=== PATIENT | male | born 1955 | race Caucasian/White ===

== ENCOUNTER 2017-06-20 15:54 | Inpatient (IN) | payer OTHER ==
[2017-06-20] MEDS ORDERED: fentaNYL 100 MCG/2 ML INJ ONE ×2 (16:00→22:47)
[2017-06-20] MEDS ORDERED: TDAP ADULT 0.5 ML INJ (BOOSTRIX) IM ONE (16:00)
[2017-06-20] MEDS ORDERED: fentaNYL 100 MCG/2 ML INJ IVP ONE (16:00)
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
[2017-06-20] MEDS ORDERED: HYDROmorphONE/DILAUDID 1 MG/ML INJ IVP ONE (16:40)
[2017-06-20 16:48] LABS: PLATELET COUNT 312 10^3/uL (150-400)
[2017-06-20] MEDS ORDERED: BUPIVACAINE 0.5% 30 ML SDV ONE (17:50)
[2017-06-20] MEDS ORDERED: POLYMYXIN B SULFATE 500,000 UNIT/10 ML SYR IRR ONE ×2 (17:51→21:26)
[2017-06-20] MEDS ORDERED: BACITRACIN 50,000 UNITS/10 ML SYR IRR ONE ×2 (17:51→21:26)
[2017-06-20] MEDS ORDERED: OXYCODONE/APAP 5/325 TAB PO PRN (18:31)
[2017-06-20] MEDS ORDERED: ACETAMINOPHEN 500 MG TAB PO PRN (18:31)
[2017-06-20] MEDS ORDERED: ALBUTEROL 3 ML DEYVIAL IH PRN (18:31)
[2017-06-20] MEDS ORDERED: ONDANSETRON 4 MG/2 ML VIAL IVP PRN ×2 (18:31→22:48)
[2017-06-20] MEDS ORDERED: NALOXONE HCL 0.4 MG/ML INJ IVP PRN (18:31)
--- NOTE | 2017-06-20 18:31 | PDANEPAE ---
ANE History of Present Illness Femur Fracture ORIF ANE Past Medical History - Cardiovascular History Hx Hypertension: No - Pulmonary History Hx COPD: No Hx Asthma/Reactive Airway Disease: No Hx Sleep Apnea: Yes ANE Review of Systems Review of systems is: negative Review of Systems: - Exercise capacity Exercise capacity: limited by disability ANE Patient History - Allergies Allergies/Adverse Reactions: cephalexin Allergy (Mild, Verified 06/20/17 17:13) Rash codeine Allergy (Mild, Verified 06/20/17 17:11) Other-Enter Comments - Home Medications Home Medications: Acetaminophen [Tylenol 325mg (*)] 650 mg PO DAILY PRN 06/20/17 [Last Taken Unknown] Cetirizine [ZyrTEC 10 mg (*)] 10 mg PO DAILY 06/20/17 [Last Taken 06/20/17] - NPO status NPO Since - Liquids (Date): 06/20/17 NPO Since - Liquids (Time): 15:00 NPO Since - Solids (Date): 06/20/17 NPO Since - Solids (Time): 15:00 ANE Labs/Vital Signs - Labs Result Diagrams: 06/20/17 16:00 06/20/17 16:00 - Vital Signs Blood Pressure: 114/62 Heart Rate: 90 Respiratory Rate: 19 O2 Sat (%): 92 Height: 175.26 cm Weight: 72.575 kg ANE Physical Exam - Airway Neck exam: FROM Mallampati Score: Class 2 Mouth exam: normal dental/mouth exam - Pulmonary Pulmonary: clear to auscultation - Cardiovascular Cardiovascular: regular rate and rhythym - ASA Status ASA Status: II ANE Anesthesia Plan Anesthesia Plan: general endotracheal anesthesia
[2017-06-20] MEDS ORDERED: ROCURONIUM 50 MG/5 ML VIAL ONE (18:43)
[2017-06-20] MEDS ORDERED: PROPOFOL 200 MG/20 ML VIAL ONE (18:43)
[2017-06-20] MEDS ORDERED: HYDROmorphONE/DILAUDID 2 MG/ML INJ ONE (18:44)
[2017-06-20] MEDS ORDERED: CLINDAMYCIN 600 MG/DEXTROSE 50 ML IV ONE (19:08)
[2017-06-20] MEDS ORDERED: PHENYLEPHRINE HCL 100 MCG/ML SYR ONE ×2 (19:18→20:26)
[2017-06-20] MEDS ORDERED: VASOPRESSIN 20 UNIT/ML VIAL ONE (20:27)
[2017-06-20] MEDS ORDERED: DEXAMETHASONE 4 MG/ML VIAL ONE ×2 (20:36)
[2017-06-20] MEDS ORDERED: ONDANSETRON 4 MG/2 ML VIAL ONE (20:36)
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
[2017-06-20 21:29] LABS: PLATELET COUNT 224 10^3/uL (150-400)
--- NOTE | 2017-06-20 22:43 | POSTANESTH ---
Post Anesthetic Evaluation Cardiovascular Status: Normal, Stable Respiratory Status: Normal, Stable Level of Consciousness/Mental Status: Can Participate in Eval, Mildly Sleepy, Arousable Pain Control: Adequate, Prn Tx Ordered Nausea/Vomiting Control: Adequate, Prn Tx Ordered Complications Possibly Related to Anesthesia: None Noted
[2017-06-20] MEDS ORDERED: HYDROmorphONE/DILAUDID 1 MG/ML INJ ONE ×2 (22:47→23:08)
[2017-06-20] MEDS ORDERED: TEMAZEPAM 15 MG CAP PO PRN (22:48)
[2017-06-20] MEDS ORDERED: HYDROCODONE/APAP 5/325 TAB PO PRN (22:48)
[2017-06-20] MEDS ORDERED: HYDROmorphONE/DILAUDID 1 MG/ML INJ IVP PRN (22:48)
[2017-06-20] MEDS ORDERED: PROMETHAZINE HCL 25 MG/ML INJ IVP PRN (22:48)
--- NOTE | 2017-06-20 22:48 | POSTOPPROG ---
Post Op Note Date of Operation: 06/20/17 Surgeon: Norma Herzog Anesthesiologist: lillian Anesthesia: GET(General Endotracheal) Pre-op Diagnosis: r shoulder post dislocation & L femur fx Procedure: r shoulder relocation & L femur orif with fluoro Inf/Abcess present in the surg proc area at time of surgery?: No Depth: Deep Incisional (Fascial) EBL: 500-1000
[2017-06-20] MEDS: fentaNYL 100 MCG/2 ML INJ IVP PRN ×2 (22:50→23:04)
[2017-06-20] MEDS: HYDROmorphONE/DILAUDID 1 MG/ML INJ IVP PRN ×2 (23:14→23:27)
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
[2017-06-21] MEDS: ACETAMINOPHEN 325 MG TAB PO SCH ×5 (00:49→23:57)
[2017-06-21] MEDS: traMADol 50 MG TAB PO SCH ×5 (00:49→23:57)
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
[2017-06-21] MEDS: OXYCODONE/APAP 5/325 TAB PO PRN ×3 (01:17→04:35)
[2017-06-21] MEDS: CLINDAMYCIN 600 MG/DEXTROSE 50 ML IV SCH ×3 (03:04→20:40)
[2017-06-21] MEDS: D5W 1/2 NS W/ 20 KCl/L 1,000 ML IV SCH ×2 (03:06→17:37)
[2017-06-21] MEDS ORDERED: ACETAMINOPHEN 325 MG TAB PO PRN (08:42)
[2017-06-21] MEDS ORDERED: oxyCODONE IR 5 MG TAB PO PRN (08:42)
[2017-06-21] MEDS ORDERED: ENOXAPARIN 30 MG/0.3 ML SYR SC SCH (09:00)
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
[2017-06-21] MEDS: ENOXAPARIN 40 MG/0.4 ML SYR SC SCH (09:57)
[2017-06-21] MEDS: CETIRIZINE 10 MG TAB PO SCH (09:57)
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
--- NOTE | 2017-06-21 14:27 | SOAPPROG ---
SOAP Progress Note Assessment/Plan: Assessment: Plan: - R arm will stay in neutral avoid IR - NWB L leg - will follow 06/21/17 14:27 Subjective: Has complaint of anterior cervical pain. Leg is doing well, Objective: Vital Signs Temp Pulse Resp BP Pulse Ox 37.2 C 87 16 98/49 L 93 06/21/17 11:56 06/21/17 11:56 06/21/17 11:56 06/21/17 11:56 06/21/17 11:56 Laboratory Results 06/21/17 04:32 06/20/17 06/21/17 06/22/17 05:59 05:59 05:59 Intake Total 3015 300 Output Total 1725 475 Balance 1290 -175 Dressing CDI, compartments are soft, some pain along the anterior compartment, NVI distally. Cervical exam is wnl. R knee lac ICD10 Worksheet Patient Problems: Problems Problem Status Onset Abrasion of knee, right Acute Concussion Acute Dislocation, shoulder, posterior Acute Femur fracture, left Acute
--- NOTE | 2017-06-21 16:18 | ASMTCMCOM ---
CM Note CM Note Notes: PT/OT have completed evaluations and are recommending inpt rehab. An eval has been ordered. C/M to follow. Date Signed: 06/21/2017 04:17 PM Electronically Signed By:Marlen Stone LCSW
[2017-06-22] MEDS: ACETAMINOPHEN 325 MG TAB PO SCH ×4 (05:14→23:08)
[2017-06-22] MEDS: traMADol 50 MG TAB PO SCH ×4 (05:14→22:14)
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
[2017-06-22] MEDS: ENOXAPARIN 40 MG/0.4 ML SYR SC SCH (09:39)
[2017-06-22] MEDS: CETIRIZINE 10 MG TAB PO SCH (09:42)
--- NOTE | 2017-06-22 13:50 | SOAPPROG ---
SOAP Progress Note Assessment/Plan: Assessment: Plan: Subjective: states his thigh feels better and his shoulder is doing well thigh dressing C&D with foot NVI r shoulder sore to ROM with 5/5 to IR,ER,bi,tri,SS, deltoid may use right shoulder as tolerated as long as elbow does not cross the neutral plane therefore may use walker NWB on LLE cont PT Objective: Vital Signs Temp Pulse Resp BP Pulse Ox 37.2 C 92 14 105/63 92 06/22/17 11:16 06/22/17 11:16 06/22/17 11:16 06/22/17 11:16 06/22/17 11:16 Laboratory Results 06/22/17 04:36 06/21/17 06/22/17 06/23/17 05:59 05:59 04:59 Intake Total 3015 1595 Output Total 0716 5755 Balance 1290 -480 ICD10 Worksheet Patient Problems: Problems Problem Status Onset Abrasion of knee, right Acute Concussion Acute Dislocation, shoulder, posterior Acute Femur fracture, left Acute
--- NOTE | 2017-06-22 13:50 | SOAPPROG ---
SOAP Progress Note Assessment/Plan: Assessment: Plan: Subjective: states his thigh feels better and his shoulder is doing well thigh dressing C&D with foot NVI r shoulder sore to ROM with 5/5 to IR,ER,bi,tri,SS, deltoid may use right shoulder as tolerated as long as elbow does not cross the neutral plane therefore may use walker NWB on LLE cont PT Objective: Vital Signs Temp Pulse Resp BP Pulse Ox 37.2 C 92 14 105/63 92 06/22/17 11:16 06/22/17 11:16 06/22/17 11:16 06/22/17 11:16 06/22/17 11:16 Laboratory Results 06/22/17 04:36 06/21/17 06/22/17 06/23/17 05:59 05:59 04:59 Intake Total 3015 1595 Output Total 8592 2952 Balance 1290 -480 ICD10 Worksheet Patient Problems: Problems Problem Status Onset Abrasion of knee, right Acute Concussion Acute Dislocation, shoulder, posterior Acute Femur fracture, left Acute
--- NOTE | 2017-06-22 13:50 | SOAPPROG ---
SOAP Progress Note Assessment/Plan: Assessment: Plan: Subjective: states his thigh feels better and his shoulder is doing well thigh dressing C&D with foot NVI r shoulder sore to ROM with 5/5 to IR,ER,bi,tri,SS, deltoid may use right shoulder as tolerated as long as elbow does not cross the neutral plane therefore may use walker NWB on LLE cont PT Objective: Vital Signs Temp Pulse Resp BP Pulse Ox 37.2 C 92 14 105/63 92 06/22/17 11:16 06/22/17 11:16 06/22/17 11:16 06/22/17 11:16 06/22/17 11:16 Laboratory Results 06/22/17 04:36 06/21/17 06/22/17 06/23/17 05:59 05:59 04:59 Intake Total 3015 1595 Output Total 4608 0539 Balance 1290 -480 ICD10 Worksheet Patient Problems: Problems Problem Status Onset Abrasion of knee, right Acute Concussion Acute Dislocation, shoulder, posterior Acute Femur fracture, left Acute
[2017-06-23] MEDS: ACETAMINOPHEN 325 MG TAB PO SCH ×3 (05:32→17:12)
[2017-06-23] MEDS: traMADol 50 MG TAB PO SCH ×3 (05:32→17:08)
--- NOTE | 2017-06-23 08:42 | SOAPPROG ---
SOAP Progress Note Assessment/Plan: Assessment: VS STABLE/ AFEBRILE NOW/ HCT 27/ WOUNDS OK CHEST CLEAR/ EATING OK Plan:REHAB 06/23/17 08:41 Objective: Vital Signs Temp Pulse Resp BP Pulse Ox 37.1 C 83 14 103/58 L 95 06/23/17 08:31 06/23/17 08:31 06/23/17 08:31 06/23/17 08:31 06/23/17 08:31 Laboratory Results 06/23/17 04:42 06/22/17 06/23/17 06/24/17 06:59 05:59 05:59 Intake Total Output Total Balance ICD10 Worksheet Patient Problems: Problems Problem Status Onset Abrasion of knee, right Acute Concussion Acute Dislocation, shoulder, posterior Acute Femur fracture, left Acute
[2017-06-23] MEDS: CETIRIZINE 10 MG TAB PO SCH (11:33)
[2017-06-23] MEDS: ENOXAPARIN 40 MG/0.4 ML SYR SC SCH (11:33)
--- NOTE | 2017-06-23 17:14 | SOAPPROG ---
SOAP Progress Note Assessment/Plan: Assessment: Plan: Subjective: states he more sore today dressing C&D with foot NVI bruising starting to be apparent in thigh RUE NVI cont PT ?inpt rehab Objective: Vital Signs Temp Pulse Resp BP Pulse Ox 37.2 C 94 14 108/58 L 96 06/23/17 15:17 06/23/17 15:17 06/23/17 15:17 06/23/17 15:17 06/23/17 15:17 Laboratory Results 06/23/17 04:42 06/22/17 06/23/17 06/24/17 06:59 05:59 05:59 Intake Total 1480 Output Total 1700 Balance -220 ICD10 Worksheet Patient Problems: Problems Problem Status Onset Abrasion of knee, right Acute Concussion Acute Dislocation, shoulder, posterior Acute Femur fracture, left Acute
[2017-06-24] MEDS: ACETAMINOPHEN 325 MG TAB PO SCH ×5 (00:33→23:20)
[2017-06-24] MEDS: traMADol 50 MG TAB PO SCH ×5 (00:33→23:21)
[2017-06-24] MEDS: ENOXAPARIN 40 MG/0.4 ML SYR SC SCH (10:03)
[2017-06-24] MEDS: CETIRIZINE 10 MG TAB PO SCH (10:03)
--- NOTE | 2017-06-24 16:51 | ASMTCMCOM ---
CM Note CM Note Notes: [facility] denied inpatient acute rehab, SNF option is [facility]; pt and agreeable to [facility]. Pt accepted but Edith PAL reports she does not know if she iwll have [facility] bed tomorrow, will know after 09:30 tomorrow, may need special [facility] auth if no [facility] bed and pt d/c tomorrow CM to follow. Date Signed: 06/24/2017 04:50 PM Electronically Signed By:SARAH Armstrong
--- NOTE | 2017-06-24 16:51 | ASMTCMCOM ---
CM Note CM Note Notes: [facility] denied inpatient acute rehab, SNF option is [facility]; pt and agreeable to [facility]. Pt accepted but Edith PAL reports she does not know if she iwll have [facility] bed tomorrow, will know after 09:30 tomorrow, may need special [facility] auth if no [facility] bed and pt d/c tomorrow CM to follow. Date Signed: 06/24/2017 04:50 PM Electronically Signed By:SARAH Armstrong
--- NOTE | 2017-06-24 18:13 | SOAPPROG ---
SOVISHNU Progress Note Assessment/Plan: Assessment: Plan: - doing well, will follow up in office next week 06/21/17 14:27 06/24/17 18:13 Subjective: Doing well, pain controlled, no issues Objective: Vital Signs Temp Pulse Resp BP Pulse Ox 37.1 C 91 18 101/64 92 06/24/17 16:09 06/24/17 16:09 06/24/17 16:09 06/24/17 16:09 06/24/17 16:09 Laboratory Results 06/23/17 04:42 06/23/17 06/24/17 06/25/17 05:59 05:59 05:59 Intake Total 1480 400 Output Total 2125 Balance -645 400 Dressing CDI, calf NT, neg homman's, compartments soft, NVI - Time Spent With Patient Time Spent With Patient: 5 - Pending Discharge Pending Discharge Within 24 Hours: No Pending Discharge Within 48 Hours: No ICD10 Worksheet Patient Problems: Problems Problem Status Onset Abrasion of knee, right Acute Concussion Acute Dislocation, shoulder, posterior Acute Femur fracture, left Acute
--- NOTE | 2017-06-24 19:49 | SOAPPROG ---
SOAP Progress Note Assessment/Plan: Assessment: VS STABLE/ AFEBRILE NOW/ HCT 27/ WOUNDS OK CHEST CLEAR/ EATING OK Plan:REHAB 06/23/17 08:41 06/24/17 19:47 SEEN THIS A.M./PATIENT DOING REASONABLY WELL WITH NO NEW PROBLEMS OR ISSUES HEENT NEGATIVE FOR TRAUMA/CHEST CLEAR/ABDOMEN SOFT/EXTREMITIES GOOD CMS AND PULSES AWAIT REHAB PLACEMENT Objective: Vital Signs Temp Pulse Resp BP Pulse Ox 37.1 C 91 18 101/64 92 06/24/17 16:09 06/24/17 16:09 06/24/17 16:09 06/24/17 16:09 06/24/17 16:09 Laboratory Results 06/23/17 04:42 06/23/17 06/24/17 06/25/17 05:59 05:59 05:59 Intake Total 1480 400 Output Total 2125 Balance -645 400 ICD10 Worksheet Patient Problems: Problems Problem Status Onset Abrasion of knee, right Acute Concussion Acute Dislocation, shoulder, posterior Acute Femur fracture, left Acute
[2017-06-25] MEDS: ACETAMINOPHEN 325 MG TAB PO SCH ×2 (05:36→12:11)
[2017-06-25] MEDS: traMADol 50 MG TAB PO SCH ×2 (05:36→12:09)
[2017-06-25] MEDS: CETIRIZINE 10 MG TAB PO SCH (08:29)
[2017-06-25] MEDS: ENOXAPARIN 40 MG/0.4 ML SYR SC SCH (08:30)
--- NOTE | 2017-06-25 14:21 | TRAUMAPN ---
- Problem/Surgery Performed (1) Femur fracture, left Qualifiers: Encounter type: initial encounter Femur location: shaft Fracture type: closed Fracture morphology: oblique Fracture alignment: displaced Qualified Code(s): S72.332A - Displaced oblique fracture of shaft of left femur , initial encounter for closed fracture Objective: Vital Signs Temp Pulse Resp BP Pulse Ox 36.9 C 80 18 120/69 97 06/25/17 08:00 06/25/17 08:00 06/25/17 08:00 06/25/17 08:00 06/25/17 08:00 Laboratory Results 06/23/17 04:42 06/24/17 06/25/17 06/26/17 05:59 05:59 05:59 Intake Total 1480 900 150 Output Total 1197 2487 0297 [facility]645 -[phone]
--- NOTE | 2017-06-25 14:21 | TRAUMAPN ---
- Problem/Surgery Performed (1) Femur fracture, left Qualifiers: Encounter type: initial encounter Femur location: shaft Fracture type: closed Fracture morphology: oblique Fracture alignment: displaced Qualified Code(s): S72.332A - Displaced oblique fracture of shaft of left femur , initial encounter for closed fracture Objective: Vital Signs Temp Pulse Resp BP Pulse Ox 36.9 C 80 18 120/69 97 06/25/17 08:00 06/25/17 08:00 06/25/17 08:00 06/25/17 08:00 06/25/17 08:00 Laboratory Results 06/23/17 04:42 06/24/17 06/25/17 06/26/17 05:59 05:59 05:59 Intake Total 1480 900 150 Output Total 7638 5220 [id number] [facility]645 -[phone]
--- NOTE | 2017-06-25 14:21 | TRAUMAPN ---
- Problem/Surgery Performed (1) Femur fracture, left Qualifiers: Encounter type: initial encounter Femur location: shaft Fracture type: closed Fracture morphology: oblique Fracture alignment: displaced Qualified Code(s): S72.332A - Displaced oblique fracture of shaft of left femur , initial encounter for closed fracture Objective: Vital Signs Temp Pulse Resp BP Pulse Ox 36.9 C 80 18 120/69 97 06/25/17 08:00 06/25/17 08:00 06/25/17 08:00 06/25/17 08:00 06/25/17 08:00 Laboratory Results 06/23/17 04:42 06/24/17 06/25/17 06/26/17 05:59 05:59 05:59 Intake Total 1480 900 150 Output Total 1149 0491 7641 [facility]645 -[phone]
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
--- NOTE | 2017-06-25 14:39 | PDIAF ---
- Diagnosis Diagnosis: Lefrt femur fracture, concussion, right shoulder fx/ dislocation stable Code Status: Full Code - Medication Management Discharge Medications: Medications to Continue on Transfer Cetirizine [ZyrTEC 10 mg (*)] 10 mg PO DAILY 06/20/17 [Last Taken 06/20/17] Acetaminophen [Tylenol 325mg (*)] 1,000 mg PO Q8 #60 tab 06/25/17 [Last Taken Unknown] Enoxaparin [Lovenox 40 MG (*)] 40 mg SC DAILY #14 syr 06/25/17 [Last Taken Unknown] Magnesium Citrate [Magnesium Citrate 300 ml (*)] 300 ml PO DAILY PRN #3 bottle 06/25/17 [Last Taken Unknown] oxyCODONE IR [Oxycodone Ir (*)] 5 - 10 mg PO Q4HRS PRN #35 tab 06/25/17 [Last Taken Unknown] traMADol [Ultram 50 mg (*)] 50 mg PO Q6HRS #30 tab 06/25/17 [Last Taken Unknown] Discharge Medications: Refer to the Discharge Home Medication list for PRN reason. - Orders Services needed: Registered Nurse, [employer] Director, Physical Therapy, Occupational Therapy Diet Recommendation: no restrictions on diet Diet Texture: Regular Texture Diet - Follow Up Care Current Providers and Referrals: Patient,NotPresent [Unknown] - As per Instructions Norma Herzog MD [Medical Doctor] - follow up in 1 week
[2017-06-25 15:25] VITALS: BP 108/64; PULSE 84; RESP 16; TEMP 98.9; O2SAT 96
--- NOTE | 2017-06-25 16:53 | ASMTCMCOM ---
CM Note CM Note Notes: Pt medically stable for d/c to [facility] who have [facility] bed today. Orders sent in [employer]. LEAH Chino to call report. Edith PAL set up transport for 1700. Date Signed: 06/25/2017 04:53 PM Electronically Signed By:SARAH Armstrong
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
== END 2017-06-25 16:58 | DRG 481 ==
LOC: F3N 23:55
PROVIDERS: ADMIT Surgery; ATTEND Surgery
PROC: 0RSJXZZ Reposition Right Shoulder Joint, External Approach (ICD-10-PCS; principal; 2017-06-20 15:45)
PROC: 0QS904Z Reposition Left Femoral Shaft with Internal Fixation Device, Open Approach (ICD-10-PCS; principal; 2017-06-20 15:45)
DX: S72.352A Displaced comminuted fracture of shaft of left femur, initial encounter for closed fracture (principal); S42.91XA Fracture of right shoulder girdle, part unspecified, initial encounter for closed fracture; S06.0X0A Concussion without loss of consciousness, initial encounter; S72.425A Nondisplaced fracture of lateral condyle of left femur, initial encounter for closed fracture; S43.011A Anterior subluxation of right humerus, initial encounter; S32.018A Other fracture of first lumbar vertebra, initial encounter for closed fracture; S80.211A Abrasion, right knee, initial encounter; S32.028A Other fracture of second lumbar vertebra, initial encounter for closed fracture; S32.038A Other fracture of third lumbar vertebra, initial encounter for closed fracture; S32.048A Other fracture of fourth lumbar vertebra, initial encounter for closed fracture; S22.088A Other fracture of T11-T12 vertebra, initial encounter for closed fracture; S82.114A Nondisplaced fracture of right tibial spine, initial encounter for closed fracture; V23.4XXA Motorcycle driver injured in collision with car, pick-up truck or van in traffic accident, initial encounter; Y92.414 Local residential or business street as the place of occurrence of the external cause; Y99.8 Other external cause status; G47.33 Obstructive sleep apnea (adult) (pediatric); Z85.46 Personal history of malignant neoplasm of prostate
CPT/HCPCS: 92507-GN; 92523-GN; 96374; 97116-GP; 97162-GP; 97166-GO; 97530-GO; 97530-GP; 97535-GO; G8987-GO-CM; G8988-GO-CI; J1100; J1170; J1650; J2370; J2405; J2704; J3010